=== PATIENT | male | born 1975 ===

== ENCOUNTER 2020-01-13 10:04 | Outpatient (CLI) | payer OTHER, SELFPAY ==
--- NOTE | 2020-01-21 08:04 | SLEEP_ITS ---
HOME SLEEP STUDY DATE OF STUDY: 01/13/2020 REASON FOR THE STUDY: Hypersomnia. HISTORY: This patient is a 44-year-old male, 61 inches tall weighing 260 pounds with a body mass index of 34.3. He has a history of not feeling rested in the morning. He has difficulty waking up early in the morning hours and he has problems waking throughout the night. He frequently snores and it is frequently loud enough that others complain about it, frequently awakens at night with heartburn, belching, or coughing. He occasionally has trouble sleeping with a cold. He rarely gasps for breath at night and rarely has breathing problems at night observed by others. He occasionally sweats excessively at night. He rarely notices his heart pounding or beating irregularly at night. He occasionally falls asleep in the day, never involuntarily, and never while driving. He rarely falls asleep during physical effort. He does not have loss of muscle tone with strong emotion. He rarely has daytime difficulties due to excessive sleepiness. 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 He rarely feels paralyzed on waking or falling asleep. He never has vivid dreamlike scenes upon awakening or falling asleep and is never afraid to go to sleep. He rarely has nightmares, rarely remembers his dreams. He frequently has racing thoughts. He occasionally feels sad, depressed, and anxious. He rarely has muscular tension. He rarely notices parts of his body jerking, rarely kicks at night, rarely has raw crawling, aching feelings in his legs or leg pain at night. He rarely has morning jaw pain. He does not grind his teeth during sleep. He rarely is bothered by pain during the day, rarely is awakened by pain at night. He occasionally wakes up feeling stiff in the morning with sore achy muscles, rarely with pain in the neck and spine. He has headaches and takes antacids regularly. Normal bedtime is 9 p.m., falling asleep within 15 minutes, waking 3 to 4 times at night for 15 minutes and during that time, will go to the bathroom. He wakes for the day between 4 and 5:00 a.m. Weekend schedule is different going to sleep at 10 p.m., waking between 6 and 7 a.m. He does not take naps. A short nap is not refreshing. He is usually drowsy in the morning for 3 hours or longer. He feels better in the evening than in the morning. MEDICAL COMORBIDITIES: Hypertension. MEDICATIONS: Amlodipine, hydrochlorothiazide, lisinopril. HABITS: Cigars, 2 cigars daily. Caffeine, 2 per day. Alcohol, 3 to 4 beverages a week. DESCRIPTION OF THE STUDY: On the [place] Sleepiness Scale, his score is 12. This was conducted as an unattended portable type 3. Home sleep test using 4-channel monitoring including respiratory effort channel, snoring channel, oxygen saturation channel, and heart rate channel. The study was scored with [facility] guidelines. The duration of the study was 7 hours 12 minutes. The apnea-hypopnea index is 29. Oxygen desaturation index is 26. Lowest desaturation 77%. Average saturation 91%. He had 56 apneas in the majority 73%, 41 apneas were obstructive, 21% of the apneas, 12 apneas were central and 3 apneas were 5% were mixed. He had 140 hypopneas. He had 794 snoring events. He had 185 desaturations and spent 41 minutes or 9% of the study below 88% saturation. Heart rate ranged from 62 to 106. Sherwin-Tucker respiration is probable based on information from this test. IMPRESSION: 1. This home sleep test shows evidence of at least moderate perhaps severe sleep-disordered breathing with high likelihood of Sherwin-Tucker respiration. He does have obstructive sleep apnea syndrome with high likelihood of Sherwin-Tucker/central sleep apnea overlapping. For this reason, he is not a candidate for an auto PAP. This pat
== END 2020-01-13 10:05 ==
LOC: ANHCSM 01-25 10:04
PROVIDERS: PCP Internal Medicine; Visit Provider Internal Medicine
DX: G47.10 Hypersomnia, unspecified (principal); Z68.34 Body mass index [BMI] 34.0-34.9, adult; I10 Essential (primary) hypertension
CPT/HCPCS: 95806

== ENCOUNTER 2020-02-23 02:50 | Outpatient (CLI) | payer OTHER, SELFPAY ==
[2020-02-23 18:24] LABS: SARS-CoV-2 RNA PCR Negative
== END 2020-02-23 02:51 | disposition home or self-care (01) ==
LOC: ANHCOVIDDT 02:50
PROVIDERS: PCP Internal Medicine; Visit Provider Internal Medicine Critical Care Medicine
DX: Z20.828 Contact with and (suspected) exposure to other viral communicable diseases (principal)
CPT/HCPCS: 87635; C9803; U0003

== ENCOUNTER 2020-02-25 13:48 | Outpatient (CLI) | payer OTHER, SELFPAY ==
--- NOTE | 2020-03-03 00:51 | SLEEP_ITS ---
CPAP BIPAP TITRATION DATE OF STUDY: 02/25/2020 ORDERING PHYSICIAN: Mark Ruvalcaba M.D. REASON FOR THE STUDY: Home sleep test on January 12, showing moderate to severe sleep-disordered breathing with high likelihood of Sherwin-Tucker respiration. HISTORY: This patient is a 44-year-old male, 71 inches tall weighing 265 pounds with a body mass index of 37. On January 13, 2020, he underwent a home sleep test for complaints of non-restorative sleep, waking throughout the night and loud snoring. His study showed an apnea-hypopnea index of 29 with a minimum desaturation to 77%. The majority of his apneas, 73% were obstructive, but he had a fair number of centrals, 21% were centrals and 5% were mixed. For this reason, he underwent a titration in the lab. There was a high likelihood of Sherwin-Tucker respirations. MEDICAL COMORBIDITIES: Hypertension. MEDICATIONS: 1. Amlodipine. 2. Hydrochlorothiazide/lisinopril. HABITS: Cigars 2 per day. Caffeine, 2 per day. Alcohol 3 to 4 beverages a week. DESCRIPTION OF THE STUDY: On the [place] Sleepiness Scale, his score is 12. This was conducted as a full night CPAP BiPAP titration using the BERD multiple channel system with EOG, EEG, submental EMG, EKG, nasal and oral airflow using thermistors and nasal pressure sensors, chest and abdominal belts, body position data and pulse oximetry. This study was scored using [facility] guidelines. The duration was 439.2 minutes. Sleep time was 344.5 minutes. Sleep efficiency was low at 78.4%. Sleep latency was 6.9 minutes, normal. REM latency was short at 62.5 minutes suggestive of hypersomnia. There were 19 awakenings and the patient spent 20.3% of the study, 87.8 minutes awake after sleep onset. Sleep architecture showed 6.1% stage 1 sleep, 55.5% stage 2 sleep, no stage 3 sleep and 18% stage REM. He spent 12% of the study supine. The patient had 4 REM episodes. The apnea-hypopnea index was 8.2, obstructive index 7.7, and the central index was 0.5. There was no supine REM at all on the study. There were 4 obstructive hypopneas in non-supine REM for an index of 3.1. He had 12 obstructive apneas and 13 obstructive hypopneas for an index of 28.8 in supine non-REM. He had 8 obstructive apneas, 3 central apneas, and 7 obstructive hypopneas in non-supine non-REM. The supine index was 28.8, non-supine index 4.5. Lowest desaturation was 88%. The patient spent no time below 88%. He had 43 desaturations of 4% or greater for an index of 5.9. AROUSALS: One hundred two arousals for an index of 13.9. There were 6 apneas for an index of 0.8, 3 hypopneas for an index of 0.4, 18 snores for an index of 2.5, 31 spontaneous arousals for an index of 4.2, and 44 limb movements causing arousal for an index of 6.0. LIMB MOVEMENTS: Two hundred six isolated limb movements for an index of 35.9. There were 16 periodic limb movements for an index of 2.8. SNORING: Light intermittent, improved as the study progressed. EKG: Sinus rhythm, mean heart rate 68. No arrhythmia. EEG: Unremarkable. No seizures. During this titration, the patient used a medium AirFit F20 full face mask. CPAP was initiated at 5 cm titrated up to 17 cm with 2 of EPR. At this level, the patient began having arousals and was switched to bilevel. Bilevel started at 17/13 and progressed at 18/14. Sleep efficiency decreased once the patient switched to bilevel. At the lower setting 17/13, he had 23 minutes of REM and 4 minutes of non-REM sleep with an apnea-hypopnea index of 0, but sleep efficiency was low at 48%. At 18/14, he had no sleep. IMPRESSION: 1. This attended titration with CPAP, then BiPAP shows an optimal pressure of 17/13. Although, sleep efficiency decreased at this setting, there was R
== END 2020-02-25 13:49 ==
LOC: ANHCSM 03-20 13:48
PROVIDERS: PCP Internal Medicine; Visit Provider Internal Medicine
DX: G47.33 Obstructive sleep apnea (adult) (pediatric) (principal)
CPT/HCPCS: 95811

== ENCOUNTER 2023-06-14 09:28 | Emergency (ER) | payer OTHER, SELFPAY ==
[2023-06-14 09:37] VITALS: BP 139/92; PULSE 93; RESP 16; TEMP 37.6; O2SAT 97
--- NOTE | 2023-06-14 09:39 | ED.URI ---
HPI - URI/Sore Throat General Chief Complaint: Upper Respiratory Infection Stated Complaint: Cough Time Seen by Provider: 06/14/23 09:42 History of Present Illness HPI Narrative: 48-year-old male presents with complaint of cough, chest congestion, headaches, body aches, fatigue for the past 5 days. Afebrile. No chest pain or shortness of breath. All systems reviewed and negative except as noted above. Related Data Home Medications Medication Instructions Recorded Confirmed blood-glucose sensor (FreeStyle 06/14/23 06/14/23 Violetta 3 Sensor device) semaglutide 2 mg/dose (8 mg/3 mL) mg subcut 06/14/23 subcutaneous pen injector (Ozempic) Allergies Allergy/AdvReac Type Severity Reaction Status Date / Time No Known Allergies Allergy Verified 06/14/23 09:33 Review of Systems Review of Systems: CONSTITUTIONAL: Denies fever, chills, or sweats. EYES: Denies visual changes, redness, or discharge. ENT: Reports rhinorrhea, congestion. Denies sore throat, or otalgia. CARDIOVASCULAR: Denies chest pain, palpitations, or edema. RESPIRATORY: reports cough. Denies dyspnea. GASTROINTESTINAL: Denies abdominal pain, nausea, vomiting, or diarrhea. GENITOURINARY: Denies dysuria or hematuria. SKIN: Denies rash or itching. MUSCULOSKELETAL: Denies back pain, joint pain, or myalgia. NEUROLOGIC: Denies headache, numbness, or weakness. PSYCHIATRIC: Denies anxiety or depression. All other systems reviewed are negative, except as documented in HPI. ON LICENSE OF [facility] Past Medical History Medical History Dyslipidemia Essential hypertension History of squamous cell carcinoma of skin Hypothyroidism (acquired) Nicotine dependence SUMAN (obstructive sleep apnea) Type 2 diabetes mellitus with hyperglycemia Surgical History Surgical History Status post Mohs surgery for squamous cell carcinoma of skin left forearm and hand Family History Family History Mother AA (aortic aneurysm) Father No problems noted. Social History Social History Smoking status: Current every day smoker Tobacco type: cigarettes and cigars Second hand tobacco smoke exposure: No Alcohol intake: former Drinks per week: 3 Substance use: never Substance use type: does not use Lack of Transportation: No Lack of Food: Never True Current Housing: I Have Housing Concerned About Future Housing: No Difficulty Paying Gas/Electric Bills: No Difficulty Paying for Meds: YES Currently Unemployed: No Education: Associate Degree Difficulty w/ Childcare or Family Care: No Living arrangements: with family Occupation/Education: occupation Gender identity (if verbalized by the patient): Male Sexual Orientation (if Verbalized by the Patient): Straight or Heterosexual Spiritual care concerns: No Comments At time of signature, agree with nursing past medical, surgical, social and family history. There is no relevant family history pertinent to the presenting complaint. Exam Narrative: GENERAL: This is a well-nourished, well-developed patient, in no apparent distress. HEAD: normocephalic, atraumatic. EYES: PERRL. Sclera clear/white. Vision is grossly intact. EARS: External ears normal, auditory canals clear and without drainage, TMs normal without perforation. Hearing grossly intact. NOSE: External nose normal with purulent nasal drainage, erythema to bilateral nares THROAT: Mucous membranes moist, posterior pharynx clear. NECK: Neck supple, non-tender without lymphadenopathy, masses or thyromegaly. CARDIOVASCULAR: Regular rate and rhythm without murmurs, gallops, or rubs. RESPIRATORY: Clear to auscultation. Breath sounds equal bilaterally. No wheezes, rales, or rhonchi. SKIN: warm, Dry, intact with no oquendo
== END 2023-06-14 10:15 | disposition home or self-care (01) ==
PROVIDERS: Emergency Provider Nurse Practitioner Family; PCP Family Medicine
DX: J06.9 Acute upper respiratory infection, unspecified (principal); F17.210 Nicotine dependence, cigarettes, uncomplicated; F17.290 Nicotine dependence, other tobacco product, uncomplicated; E78.5 Hyperlipidemia, unspecified; I10 Essential (primary) hypertension; E03.9 Hypothyroidism, unspecified; E11.9 Type 2 diabetes mellitus without complications; Z85.828 Personal history of other malignant neoplasm of skin
CPT/HCPCS: 87804; 99213; G0463

== ENCOUNTER 2023-09-16 01:02 | Day surgery (SDC) | payer OTHER, SELFPAY ==
[2023-09-04 12:47] VITALS: BMI 34.3
[2023-09-16 08:56] VITALS: BP 145/95; PULSE 82; RESP 18; TEMP 36.5; O2SAT 95
[2023-09-16] MEDS: LACTATED RINGERS 1,000 ML 150 ML IV CONT (09:06)
--- NOTE | 2023-09-16 09:24 | WPDANESEPPF ---
Anes - Initial Pre Proc Eval Procedure: Operation Date: 09/16/23 10:30 Proposed Procedures p Screening Colonoscopy - Merrill Toure MD Date/Time: 09/16/23 09:24 Surgeon: Merrill Toure MD Pre Op Diagnosis: neoplasm screening Patient Data Age: 48 Gender: M Height: 1.85 m Weight: 116.7 kg Last Vital Signs Temp 97.7 F 09/16/23 08:56 Pulse 82 09/16/23 08:56 Resp 18 09/16/23 08:56 BP 145/95 H 09/16/23 08:56 Pulse Ox 95 09/16/23 08:56 O2 Del Method Room Air 09/16/23 08:56 Allergies Allergy/AdvReac Type Severity Reaction Status Date / Time No Known Allergies Allergy Verified 09/16/23 08:55 Home Medications Medication Instructions Recorded Confirmed Type insulin lispro 200 unit/mL (3 mL) 1 sliding scale dose subcut 07/02/23 09/04/23 History subcutaneous pen (Humalog KwikPen USEASDIRECTD U-200 Insulin) amlodipine 5 mg tablet 5 mg PO DAILY #90 tabs 07/06/23 09/04/23 Rx hydrochlorothiazide 25 mg tablet 25 mg PO DAILY #90 tabs 07/06/23 09/04/23 Rx levothyroxine 150 mcg tablet 150 mcg PO DAILY #90 tabs 07/06/23 09/04/23 Rx (Synthroid) lisinopril 40 mg tablet 40 mg PO DAILY #90 tabs 07/06/23 09/04/23 Rx semaglutide 2 mg/dose (8 mg/3 mL) 2 mg (0.75 mL) subcut WEEKLY 30 07/06/23 09/04/23 Rx subcutaneous pen injector (Ozempic) days #3.75 mL atorvastatin 20 mg tablet 20 mg PO DAILY #90 tabs 07/16/23 09/04/23 Rx metformin 500 mg tablet 500 mg PO BID 90 days #270 tabs 07/16/23 09/04/23 Rx tadalafil 20 mg tablet 20 mg PO DAILY PRN sexual activity 08/11/23 09/04/23 Rx #30 tabs blood-glucose sensor (FreeStyle #5 ea 09/13/23 Rx Violetta 3 Sensor device) Patient hx anesthesia problems: none Family hx anesthesia problems: none Results Review: All pre-operative results and documents have been reviewed as part of the pre-operative evaluation. [facility] Past Medical History Medical History (Updated 07/16/23 @ 12:11 by SEBASTIAN Mccord) Dyslipidemia Essential hypertension History of squamous cell carcinoma of skin Hypothyroidism (acquired) Nicotine dependence (Unknown) SUMAN (obstructive sleep apnea) Type 2 diabetes mellitus with hyperglycemia Surgical History Surgical History Status post Mohs surgery for squamous cell carcinoma of skin left forearm and hand Family History Family History Mother AA (aortic aneurysm) Father No problems noted. Social History Social History Smoking packs per day: 1 Smoking cigarettes per day: 20.0 Years smoked: 30 Smoking pack-years: 30.00 Smoking status: Former smoker Tobacco type: cigarettes and cigars Second hand tobacco smoke exposure: No Alcohol intake: current Drinks per week: 6 Substance use: never Substance use type: does not use Lack of Transportation: No Lack of Food: Never True Current Housing: I Have Housing Concerned About Future Housing: No Difficulty Paying Gas/Electric Bills: No Difficulty Paying for Meds: YES Currently Unemployed: No Education: Associate Degree Difficulty w/ Childcare or Family Care: No Living arrangements: with family Occupation/Education: occupation Gender identity (if verbalized by the patient): Male Sexual Orientation (if Verbalized by the Patient): Straight or Heterosexual Spiritual care concerns: No Anes - Eval Final PreProcedure Day of Procedure 09/16/23 09:24 Patient weight: obese Heart: regular rate and rhythm Lungs: clear to auscultation Airway: Mallampati scale class II Neurological: alert and oriented Last oral intake: >/= 8 hours ASA classification: III Emergent: no Anesthetic plan: proceed Anesthesia type and monitoring: general GIVS and standard monitoring Results Review: All pre-operative results and documents have been rev
--- NOTE | 2023-09-16 09:53 | PM.HPGS ---
History of Present Illness History of Present Illness Consent: Risks, benefits, and alternatives have been discussed and questions answered. Patient agrees to proceed with procedure. Chief complaint: neoplasm screening Narrative: Hubert Green is a 48 year old male here for first screening colonoscopy Review of Systems Review of Systems: All systems reviewed & are unremarkable except as noted in HPI and below PMFSH Past Medical History Medical History (Updated 09/16/23 @ 09:53 by Merrill Toure MD) Colon cancer screening Dyslipidemia Essential hypertension History of squamous cell carcinoma of skin Hypothyroidism (acquired) Nicotine dependence (Unknown) USMAN (obstructive sleep apnea) Type 2 diabetes mellitus with hyperglycemia Surgical History Surgical History Status post Mohs surgery for squamous cell carcinoma of skin left forearm and hand Family History Family History Mother AA (aortic aneurysm) Father No problems noted. Social History Social History Smoking packs per day: 1 Smoking cigarettes per day: 20.0 Years smoked: 30 Smoking pack-years: 30.00 Smoking status: Former smoker Tobacco type: cigarettes and cigars Second hand tobacco smoke exposure: No Alcohol intake: current Drinks per week: 6 Substance use: never Substance use type: does not use Lack of Transportation: No Lack of Food: Never True Current Housing: I Have Housing Concerned About Future Housing: No Difficulty Paying Gas/Electric Bills: No Difficulty Paying for Meds: YES Currently Unemployed: No Education: Associate Degree Difficulty w/ Childcare or Family Care: No Living arrangements: with family Occupation/Education: occupation Gender identity (if verbalized by the patient): Male Sexual Orientation (if Verbalized by the Patient): Straight or Heterosexual Spiritual care concerns: No Meds Home Medications and Allergies Home Medications Medication Instructions Recorded Confirmed Type insulin lispro 200 unit/mL (3 mL) 1 sliding scale dose subcut 07/02/23 09/04/23 History subcutaneous pen (Humalog KwikPen USEASDIRECTD U-200 Insulin) amlodipine 5 mg tablet 5 mg PO DAILY #90 tabs 07/06/23 09/04/23 Rx hydrochlorothiazide 25 mg tablet 25 mg PO DAILY #90 tabs 07/06/23 09/04/23 Rx levothyroxine 150 mcg tablet 150 mcg PO DAILY #90 tabs 07/06/23 09/04/23 Rx (Synthroid) lisinopril 40 mg tablet 40 mg PO DAILY #90 tabs 07/06/23 09/04/23 Rx semaglutide 2 mg/dose (8 mg/3 mL) 2 mg (0.75 mL) subcut WEEKLY 30 07/06/23 09/04/23 Rx subcutaneous pen injector (Ozempic) days #3.75 mL atorvastatin 20 mg tablet 20 mg PO DAILY #90 tabs 07/16/23 09/04/23 Rx metformin 500 mg tablet 500 mg PO BID 90 days #270 tabs 07/16/23 09/04/23 Rx tadalafil 20 mg tablet 20 mg PO DAILY PRN sexual activity 08/11/23 09/04/23 Rx #30 tabs blood-glucose sensor (FreeStyle #5 ea 09/13/23 Rx Violetta 3 Sensor device) Allergies Allergy/AdvReac Type Severity Reaction Status Date / Time No Known Allergies Allergy Verified 09/16/23 08:55 Vital Signs Vital Signs - 24 hr 09/16/23 08:56 Temperature 97.7 F Pulse Rate 82 Respiratory Rate 18 Blood Pressure 145/95 H Pulse Oximetry 95 Oxygen Delivery Room Air Exam Const: General: comfortable and no acute distress HENMT: Face/Nose/Sinus: Normal nares present Eyes: General: appearance normal, both eyes and all related structures Neck: Neck: no JVD Resp: Auscultation: clear to auscultation bilaterally Cardio: Rate: regular rate Rhythm: regular rhythm GI: Inspection: non-distended GI Palp: Yes Soft to palpation Skin: General skin exam: normal color Neuro: General: gait normal Speech: normal speech Extrem: General: normal to inspection Psych:
[2023-09-16 10:14] VITALS: BP 122/66; PULSE 78; RESP 20; O2SAT 97
[2023-09-16 10:24] VITALS: BP 121/67; PULSE 78; RESP 17; O2SAT 97
[2023-09-16 10:34] VITALS: BP 125/74; PULSE 69; RESP 16; O2SAT 97
== END 2023-09-16 10:38 | disposition home or self-care (01) ==
PROVIDERS: PCP Family Medicine; Visit Provider Internal Medicine Gastroenterology
PROC: 0DJD8ZZ Inspection of Lower Intestinal Tract, Via Natural or Artificial Opening Endoscopic (ICD-10-PCS; CPT 45378; principal; 2023-09-16 10:30)
DX: Z12.31 Encounter for screening mammogram for malignant neoplasm of breast (principal); D12.3 Benign neoplasm of transverse colon; K64.8 Other hemorrhoids; K57.30 Diverticulosis of large intestine without perforation or abscess without bleeding; E78.5 Hyperlipidemia, unspecified; I10 Essential (primary) hypertension; E03.9 Hypothyroidism, unspecified; G47.33 Obstructive sleep apnea (adult) (pediatric); E11.9 Type 2 diabetes mellitus without complications; E66.9 Obesity, unspecified; Z68.33 Body mass index [BMI] 33.0-33.9, adult; Z79.4 Long term (current) use of insulin; Z79.84 Long term (current) use of oral hypoglycemic drugs; Z79.85 Long-term (current) use of injectable non-insulin antidiabetic drugs; Z98.890 Other specified postprocedural states; Z87.891 Personal history of nicotine dependence; Z85.828 Personal history of other malignant neoplasm of skin
CPT/HCPCS: 45385; 88305; J2704; J7120